=== PATIENT | male | born 1970 | race Caucasian/White ===

== ENCOUNTER 2019-10-16 10:30 | Inpatient (IN) | payer MEDICAID ==
[~2019-10-16] VITALS: Ht 172.7 cm; Wt 85.7 kg
[2019-10-16 10:38] VITALS: BP_SYST 130
[2019-10-16] MEDS ORDERED: VANCOMYCIN HCL 1,000 MG in NS 250 ML IV ONE (11:00)
[2019-10-16] MEDS ORDERED: NACL 0.9% 1,000 ML IV ONE (11:00)
[2019-10-16] MEDS ORDERED: PIPERACILLIN/TAZO 3.375 GM in NS 50 ML IV ONE (11:00)
[2019-10-16 11:25] LABS: BASOPHILS % (AUTO) 0.4 % (0.0-2.0); EOSINOPHILS # (AUTO) 0.1 K/uL (0.0-0.4); HEMATOCRIT 42.6 % (36-54); HEMOGLOBIN 14.4 g/dL (14.0-18.0); LYMPHOCYTES # (AUTO) 1.8 K/uL (1.0-5.5); LYMPHOCYTES % (AUTO) 17.1 % (20.5-51.5); MEAN CORPUSCULAR HEMOGLOBIN 29 pg (27-31); MEAN CORPUSCULAR HGB CONC 34 % (32-36); MEAN CORPUSCULAR VOLUME 87 fL (79.0-98.0); MONOCYTES % (AUTO) 9.5 % (1.7-9.3); NEUTROPHILS # (AUTO) 7.8 K/uL (1.8-7.7); PLATELET COUNT (AUTO) 302 K/uL (130-430); RED BLOOD CELL COUNT(AUTO) 4.88 MIL/uL (4.2-6.2); RED CELL DISTRIBUTION WIDTH 12.5 % (9.0-15.0); WHITE BLOOD COUNT (AUTO) 10.8 K/uL (4.8-10.8)
[2019-10-16] MEDS ORDERED: PIPERACILLIN/TAZOBACTAM 3.375 GM/VIAL (ZOSYN) IV ONE (11:33)
[2019-10-16 11:37] LABS: BILIRUBIN,URINE NEGATIVE (NEGATIVE); CLARITY/URINE CLEAR (CLEAR); COLOR,URINE YELLOW (YELLOW); GLUCOSE,URINE 3+ (NEGATIVE); KETONES,URINE 1+ (NEGATIVE); LEUKOCYTE ESTERASE ,URINE NEGATIVE (NEGATIVE); NITRITE, URINE NEGATIVE (NEGATIVE); PROTEIN URINE TRACE (NEGATIVE)
[2019-10-16 11:37] LABS: CREATININE 0.87 mg/dL (0.55-1.30); POTASSIUM 3.9 mmol/L (3.5-5.1)
[2019-10-16 11:39] LABS: BLOOD, URINE TRACE (NEGATIVE)
[2019-10-16 11:42] LABS: ALBUMIN 2.9 g/dL (3.4-4.8); TOTAL BILIRUBIN 0.8 mg/dL (0.0-1.0)
[2019-10-16 11:45] LABS: BACTERIA,URINE FEW /HPF (None Seen); HYALINE CASTS, URINE 0-10 /LPF (None Seen); MUCUS,URINE 2+ /LPF (None Seen)
[2019-10-16 11:50] LABS: C-REACTIVE PROTEIN QUANT 18.8 mg/dL (0-0.5)
[2019-10-16] MEDS ORDERED: VANCOMYCIN HCL 1000 MG/VIAL IV ONE (12:11)
[2019-10-16 13:01] VITALS: BP_SYST 141
[2019-10-16] MEDS ORDERED: PIOGLITAZONE HCL 15 MG TABLET PO ONE (14:00)
[2019-10-16] MEDS ORDERED: LORazepam 2 MG/ML VIAL IVP PRN (14:00)
[2019-10-16] MEDS ORDERED: HYDROcodone/ACETAMIN 5-325 MG TAB (NORCO/ VICODIN) PO PRN (14:00)
[2019-10-16] MEDS ORDERED: ONDANSETRON HCL 4 MG/2 ML VIAL IVP PRN (14:00)
[2019-10-16] MEDS ORDERED: PIOGLITAZONE HCL 15 MG TABLET PO SCH (14:00)
[2019-10-16] MEDS: NACL 0.9% 1,000 ML IV SCH ×3 (14:25→23:28)
[2019-10-16 16:00] VITALS: BP_SYST 145
[2019-10-16] MEDS: PIPERACILLIN/TAZO 3.375/DEX-IS 50 ML IV SCH ×2 (18:02→23:25)
[2019-10-16] MEDS: metFORMIN HCL 500 MG TABLET PO SCH (18:03)
[2019-10-16] MEDS: INSULIN REGULAR, HUMAN 100 UNITS/ML, 10 ML VIAL (humuLIN R) SUBCUT PRN ×2 (18:10→20:17)
[2019-10-16] MEDS: ACETAMINOPHEN 325 MG TABLET PO PRN ×2 (18:14→23:23)
[2019-10-16 20:00] VITALS: BP_SYST 132
[2019-10-17] VITALS: BP_SYST 135
[2019-10-17] MEDS: PIPERACILLIN/TAZO 3.375/DEX-IS 50 ML IV SCH ×4 (06:10→23:29)
[2019-10-17] MEDS: ACETAMINOPHEN 325 MG TABLET PO PRN (06:12)
[2019-10-17] MEDS: INSULIN REGULAR, HUMAN 100 UNITS/ML, 10 ML VIAL (humuLIN R) SUBCUT PRN ×4 (06:12→20:03)
[2019-10-17 06:45] LABS: BASOPHILS % (AUTO) 0.4 % (0.0-2.0); EOSINOPHILS # (AUTO) 0.2 K/uL (0.0-0.4); EOSINOPHILS % (AUTO) 1.3 % (0.0-4.0); HEMATOCRIT 40.2 % (36-54); HEMOGLOBIN 13.6 g/dL (14.0-18.0); LYMPHOCYTES # (AUTO) 2.4 K/uL (1.0-5.5); LYMPHOCYTES % (AUTO) 20.2 % (20.5-51.5); MEAN CORPUSCULAR HEMOGLOBIN 29 pg (27-31); MEAN CORPUSCULAR HGB CONC 34 % (32-36); MEAN CORPUSCULAR VOLUME 87 fL (79.0-98.0); MONOCYTES % (AUTO) 8.5 % (1.7-9.3); NEUTROPHILS # (AUTO) 8.2 K/uL (1.8-7.7); NEUTROPHILS % (AUTO) 69.6 % (40.0-70.0); PLATELET COUNT (AUTO) 321 K/uL (130-430); RED BLOOD CELL COUNT(AUTO) 4.65 MIL/uL (4.2-6.2); RED CELL DISTRIBUTION WIDTH 12.3 % (9.0-15.0); WHITE BLOOD COUNT (AUTO) 11.8 K/uL (4.8-10.8)
[2019-10-17 07:18] LABS: CALCIUM 8.3 mg/dL (8.4-11.0); CREATININE 0.66 mg/dL (0.55-1.30); POTASSIUM 4.7 mmol/L (3.5-5.1)
[2019-10-17 08:30] VITALS: BP_SYST 144
[2019-10-17] MEDS ORDERED: PIOGLITAZONE HCL 15 MG TABLET PO SCH (09:00)
[2019-10-17 09:24] LABS: ERYTHROCYTE SEDIMENTATION RATE 62 MM/HR (0-15)
[2019-10-17] MEDS: PIOGLITAZONE HCL 15 MG TABLET PO SCH (09:52)
[2019-10-17] MEDS: metFORMIN HCL 500 MG TABLET PO SCH ×2 (09:52→17:21)
[2019-10-17 11:12] LABS: C-REACTIVE PROTEIN QUANT 14.8 mg/dL (0-0.5)
[2019-10-17] MEDS ORDERED: GLUCOSE 15 GM GEL (in 37.5 GM TUBE) PO PRN (11:30)
[2019-10-17] MEDS ORDERED: D5W 1,000 ML IV PRN (11:30)
[2019-10-17] MEDS ORDERED: DEXTROSE 50%-WATER 50 ML DISP.SYRIN IVP PRN (11:30)
[2019-10-17 12:03] VITALS: BP_SYST 141
[2019-10-17] MEDS: NACL 0.9% 1,000 ML IV SCH ×2 (14:38→23:28)
[2019-10-17 16:10] VITALS: BP_SYST 154
[2019-10-17 20:00] VITALS: BP_SYST 129
[2019-10-18] MEDS: NACL 0.9% 1,000 ML IV SCH ×2 (05:53→11:29)
[2019-10-18] MEDS: PIPERACILLIN/TAZO 3.375/DEX-IS 50 ML IV SCH ×3 (06:40→17:22)
[2019-10-18] MEDS: INSULIN REGULAR, HUMAN 100 UNITS/ML, 10 ML VIAL (humuLIN R) SUBCUT PRN ×4 (06:46→22:17)
[2019-10-18 06:54] LABS: BASOPHILS # (AUTO) 0.1 K/uL (0.0-0.2); BASOPHILS % (AUTO) 0.6 % (0.0-2.0); EOSINOPHILS # (AUTO) 0.1 K/uL (0.0-0.4); HEMATOCRIT 38.1 % (36-54); HEMOGLOBIN 12.9 g/dL (14.0-18.0); LYMPHOCYTES # (AUTO) 3.1 K/uL (1.0-5.5); LYMPHOCYTES % (AUTO) 24.1 % (20.5-51.5); MEAN CORPUSCULAR HEMOGLOBIN 30 pg (27-31); MEAN CORPUSCULAR HGB CONC 34 % (32-36); MEAN CORPUSCULAR VOLUME 87 fL (79.0-98.0); MONOCYTES # (AUTO) 1.2 K/uL (0.0-1.0); MONOCYTES % (AUTO) 9.7 % (1.7-9.3); NEUTROPHILS # (AUTO) 8.3 K/uL (1.8-7.7); NEUTROPHILS % (AUTO) 64.6 % (40.0-70.0); PLATELET COUNT (AUTO) 333 K/uL (130-430); RED BLOOD CELL COUNT(AUTO) 4.38 MIL/uL (4.2-6.2); RED CELL DISTRIBUTION WIDTH 12.4 % (9.0-15.0); WHITE BLOOD COUNT (AUTO) 12.8 K/uL (4.8-10.8)
[2019-10-18] MEDS: ACETAMINOPHEN 325 MG TABLET PO PRN (06:55)
[2019-10-18 08:04] LABS: CALCIUM 8.6 mg/dL (8.4-11.0); CREATININE 0.64 mg/dL (0.55-1.30); POTASSIUM 3.6 mmol/L (3.5-5.1)
[2019-10-18 09:10] LABS: C-REACTIVE PROTEIN QUANT 12.3 mg/dL (0-0.5)
[2019-10-18] MEDS: PIOGLITAZONE HCL 15 MG TABLET PO SCH (09:41)
[2019-10-18] MEDS: metFORMIN HCL 500 MG TABLET PO SCH ×2 (09:45→17:30)
[2019-10-18 10:45] LABS: ERYTHROCYTE SEDIMENTATION RATE 74 MM/HR (0-15)
[2019-10-18 12:00] VITALS: BP_SYST 125
[2019-10-18 16:40] VITALS: BP_SYST 142
[2019-10-18 19:00] VITALS: BP_SYST 134
[2019-10-18 20:00] VITALS: BP_SYST 139
[2019-10-18] MEDS: HYDROcodone/ACETAMIN 10-325 MG TAB PO PRN (22:13)
[2019-10-19] MEDS: PIPERACILLIN/TAZO 3.375/DEX-IS 50 ML IV SCH ×5 (00:40→22:07)
[2019-10-19 00:56] VITALS: BP_SYST 136
[2019-10-19] MEDS: NACL 0.9% 1,000 ML IV SCH ×3 (01:53→22:08)
[2019-10-19] MEDS: HYDROcodone/ACETAMIN 10-325 MG TAB PO PRN ×2 (06:40→18:19)
[2019-10-19] MEDS: INSULIN REGULAR, HUMAN 100 UNITS/ML, 10 ML VIAL (humuLIN R) SUBCUT PRN ×4 (06:41→22:12)
[2019-10-19 08:10] LABS: BASOPHILS # (AUTO) 0.1 K/uL (0.0-0.2); BASOPHILS % (AUTO) 1.1 % (0.0-2.0); EOSINOPHILS # (AUTO) 0.1 K/uL (0.0-0.4); HEMATOCRIT 38.7 % (36-54); HEMOGLOBIN 13.2 g/dL (14.0-18.0); LYMPHOCYTES # (AUTO) 2.9 K/uL (1.0-5.5); LYMPHOCYTES % (AUTO) 21.9 % (20.5-51.5); MEAN CORPUSCULAR HEMOGLOBIN 29 pg (27-31); MEAN CORPUSCULAR HGB CONC 34 % (32-36); MEAN CORPUSCULAR VOLUME 86 fL (79.0-98.0); MONOCYTES # (AUTO) 1.2 K/uL (0.0-1.0); MONOCYTES % (AUTO) 9.3 % (1.7-9.3); NEUTROPHILS # (AUTO) 8.8 K/uL (1.8-7.7); NEUTROPHILS % (AUTO) 66.7 % (40.0-70.0); PLATELET COUNT (AUTO) 375 K/uL (130-430); RED BLOOD CELL COUNT(AUTO) 4.51 MIL/uL (4.2-6.2); RED CELL DISTRIBUTION WIDTH 12.3 % (9.0-15.0); WHITE BLOOD COUNT (AUTO) 13.1 K/uL (4.8-10.8)
[2019-10-19 08:16] VITALS: BP_SYST 110
[2019-10-19 08:19] LABS: C-REACTIVE PROTEIN QUANT 11.2 mg/dL (0-0.5); CALCIUM 8.7 mg/dL (8.4-11.0); CREATININE 0.73 mg/dL (0.55-1.30); POTASSIUM 4.2 mmol/L (3.5-5.1)
[2019-10-19] MEDS: metFORMIN HCL 500 MG TABLET PO SCH ×2 (08:24→18:10)
[2019-10-19] MEDS: PIOGLITAZONE HCL 15 MG TABLET PO SCH (08:25)
[2019-10-19 10:57] LABS: ERYTHROCYTE SEDIMENTATION RATE 73 MM/HR (0-15)
[2019-10-19 12:01] VITALS: BP_SYST 144
[2019-10-19 15:27] VITALS: BP_SYST 135
[2019-10-19 20:00] VITALS: BP_SYST 126
[2019-10-20] VITALS: BP_SYST 134
[2019-10-20] MEDS: NACL 0.9% 1,000 ML IV SCH ×2 (02:42→17:07)
[2019-10-20] MEDS: HYDROcodone/ACETAMIN 10-325 MG TAB PO PRN ×2 (06:21→21:01)
[2019-10-20] MEDS: INSULIN REGULAR, HUMAN 100 UNITS/ML, 10 ML VIAL (humuLIN R) SUBCUT PRN ×4 (06:24→20:59)
[2019-10-20] MEDS: PIPERACILLIN/TAZO 3.375/DEX-IS 50 ML IV SCH ×4 (06:26→21:09)
[2019-10-20 06:57] LABS: CALCIUM 9.2 mg/dL (8.4-11.0); CREATININE 0.79 mg/dL (0.55-1.30); POTASSIUM 5.1 mmol/L (3.5-5.1)
[2019-10-20 08:00] VITALS: BP_SYST 129
[2019-10-20] MEDS: metFORMIN HCL 500 MG TABLET PO SCH ×2 (08:00→17:02)
[2019-10-20 08:59] LABS: BASOPHILS % (AUTO) 0.4 % (0.0-2.0); EOSINOPHILS # (AUTO) 0.1 K/uL (0.0-0.4); HEMATOCRIT 40.8 % (36-54); HEMOGLOBIN 13.7 g/dL (14.0-18.0); LYMPHOCYTES # (AUTO) 2.4 K/uL (1.0-5.5); MEAN CORPUSCULAR HEMOGLOBIN 29 pg (27-31); MEAN CORPUSCULAR HGB CONC 34 % (32-36); MEAN CORPUSCULAR VOLUME 87 fL (79.0-98.0); MONOCYTES # (AUTO) 1.3 K/uL (0.0-1.0); MONOCYTES % (AUTO) 9.8 % (1.7-9.3); NEUTROPHILS # (AUTO) 8.9 K/uL (1.8-7.7); NEUTROPHILS % (AUTO) 69.8 % (40.0-70.0); PLATELET COUNT (AUTO) 430 K/uL (130-430); RED BLOOD CELL COUNT(AUTO) 4.71 MIL/uL (4.2-6.2); RED CELL DISTRIBUTION WIDTH 12.1 % (9.0-15.0); WHITE BLOOD COUNT (AUTO) 12.7 K/uL (4.8-10.8)
[2019-10-20 09:39] LABS: C-REACTIVE PROTEIN QUANT 13.5 mg/dL (0-0.5)
[2019-10-20] MEDS: PIOGLITAZONE HCL 15 MG TABLET PO SCH (10:08)
[2019-10-20 10:24] LABS: ERYTHROCYTE SEDIMENTATION RATE 77 MM/HR (0-15)
[2019-10-20 12:00] VITALS: BP_SYST 136
[2019-10-20 20:00] VITALS: BP_SYST 138
[2019-10-21] MEDS: NACL 0.9% 1,000 ML IV SCH ×3 (03:53→22:45)
[2019-10-21] MEDS: PIPERACILLIN/TAZO 3.375/DEX-IS 50 ML IV SCH (06:06)
[2019-10-21] MEDS: INSULIN REGULAR, HUMAN 100 UNITS/ML, 10 ML VIAL (humuLIN R) SUBCUT PRN ×4 (06:18→22:40)
[2019-10-21 07:21] LABS: BASOPHILS # (AUTO) 0.1 K/uL (0.0-0.2); BASOPHILS % (AUTO) 0.6 % (0.0-2.0); EOSINOPHILS # (AUTO) 0.2 K/uL (0.0-0.4); HEMATOCRIT 38.4 % (36-54); HEMOGLOBIN 13.1 g/dL (14.0-18.0); LYMPHOCYTES # (AUTO) 2.6 K/uL (1.0-5.5); LYMPHOCYTES % (AUTO) 25.8 % (20.5-51.5); MEAN CORPUSCULAR HEMOGLOBIN 30 pg (27-31); MEAN CORPUSCULAR HGB CONC 34 % (32-36); MEAN CORPUSCULAR VOLUME 87 fL (79.0-98.0); MONOCYTES # (AUTO) 1.1 K/uL (0.0-1.0); MONOCYTES % (AUTO) 10.4 % (1.7-9.3); NEUTROPHILS # (AUTO) 6.3 K/uL (1.8-7.7); NEUTROPHILS % (AUTO) 61.2 % (40.0-70.0); PLATELET COUNT (AUTO) 427 K/uL (130-430); RED BLOOD CELL COUNT(AUTO) 4.43 MIL/uL (4.2-6.2); WHITE BLOOD COUNT (AUTO) 10.2 K/uL (4.8-10.8)
[2019-10-21 07:31] LABS: C-REACTIVE PROTEIN QUANT 11.8 mg/dL (0-0.5); CALCIUM 8.8 mg/dL (8.4-11.0); CREATININE 0.69 mg/dL (0.55-1.30); POTASSIUM 4.7 mmol/L (3.5-5.1)
[2019-10-21] MEDS: metFORMIN HCL 500 MG TABLET PO SCH ×2 (08:00→17:01)
[2019-10-21 08:22] VITALS: BP_SYST 125
[2019-10-21 08:27] LABS: ERYTHROCYTE SEDIMENTATION RATE 74 MM/HR (0-15)
[2019-10-21] MEDS: PIOGLITAZONE HCL 15 MG TABLET PO SCH (08:51)
[2019-10-21] MEDS: HYDROcodone/ACETAMIN 10-325 MG TAB PO PRN ×3 (08:54→22:30)
[2019-10-21 12:00] VITALS: BP_SYST 141
[2019-10-21] MEDS: ceFAZolin SODIUM 1 GM in D5W 50 ML IV SCH ×2 (13:39→22:30)
[2019-10-21 16:00] VITALS: BP_SYST 122
[2019-10-21 20:00] VITALS: BP_SYST 134
[2019-10-22 00:26] VITALS: BP_SYST 120
[2019-10-22] MEDS: ceFAZolin SODIUM 1 GM in D5W 50 ML IV SCH ×3 (06:17→21:33)
[2019-10-22] MEDS: INSULIN REGULAR, HUMAN 100 UNITS/ML, 10 ML VIAL (humuLIN R) SUBCUT PRN ×4 (06:23→21:37)
[2019-10-22] MEDS: HYDROcodone/ACETAMIN 10-325 MG TAB PO PRN ×2 (06:27→21:41)
[2019-10-22 07:15] LABS: BASOPHILS # (AUTO) 0.1 K/uL (0.0-0.2); BASOPHILS % (AUTO) 0.7 % (0.0-2.0); EOSINOPHILS # (AUTO) 0.1 K/uL (0.0-0.4); EOSINOPHILS % (AUTO) 0.8 % (0.0-4.0); HEMATOCRIT 38.1 % (36-54); HEMOGLOBIN 12.9 g/dL (14.0-18.0); LYMPHOCYTES # (AUTO) 2.1 K/uL (1.0-5.5); LYMPHOCYTES % (AUTO) 17.9 % (20.5-51.5); MEAN CORPUSCULAR HEMOGLOBIN 29 pg (27-31); MEAN CORPUSCULAR HGB CONC 34 % (32-36); MEAN CORPUSCULAR VOLUME 86 fL (79.0-98.0); MONOCYTES # (AUTO) 1.2 K/uL (0.0-1.0); NEUTROPHILS # (AUTO) 8.3 K/uL (1.8-7.7); NEUTROPHILS % (AUTO) 70.6 % (40.0-70.0); PLATELET COUNT (AUTO) 471 K/uL (130-430); RED BLOOD CELL COUNT(AUTO) 4.43 MIL/uL (4.2-6.2); RED CELL DISTRIBUTION WIDTH 12.2 % (9.0-15.0); WHITE BLOOD COUNT (AUTO) 11.7 K/uL (4.8-10.8)
[2019-10-22 07:27] LABS: CALCIUM 8.7 mg/dL (8.4-11.0); CREATININE 0.58 mg/dL (0.55-1.30); POTASSIUM 3.8 mmol/L (3.5-5.1)
[2019-10-22 08:02] VITALS: BP_SYST 130
[2019-10-22] MEDS: PIOGLITAZONE HCL 15 MG TABLET PO SCH (08:04)
[2019-10-22] MEDS: metFORMIN HCL 500 MG TABLET PO SCH ×2 (08:04→17:26)
[2019-10-22 08:09] LABS: C-REACTIVE PROTEIN QUANT 13.5 mg/dL (0-0.5)
[2019-10-22 10:00] LABS: ERYTHROCYTE SEDIMENTATION RATE 82 MM/HR (0-15)
[2019-10-22] MEDS: NACL 0.9% 1,000 ML IV SCH ×2 (10:43→21:33)
[2019-10-22 12:14] VITALS: BP_SYST 129
[2019-10-22 16:08] VITALS: BP_SYST 126
[2019-10-22 20:00] VITALS: BP_SYST 145
[2019-10-23 02:20] VITALS: BP_SYST 139
[2019-10-23] MEDS: ceFAZolin SODIUM 1 GM in D5W 50 ML IV SCH ×2 (05:51→14:37)
[2019-10-23] MEDS: NACL 0.9% 1,000 ML IV SCH (05:52)
[2019-10-23] MEDS: INSULIN REGULAR, HUMAN 100 UNITS/ML, 10 ML VIAL (humuLIN R) SUBCUT PRN ×2 (05:59→12:14)
[2019-10-23 07:20] LABS: BASOPHILS # (AUTO) 0.1 K/uL (0.0-0.2); BASOPHILS % (AUTO) 0.8 % (0.0-2.0); EOSINOPHILS # (AUTO) 0.1 K/uL (0.0-0.4); HEMOGLOBIN 12.9 g/dL (14.0-18.0); LYMPHOCYTES % (AUTO) 22.5 % (20.5-51.5); MEAN CORPUSCULAR HEMOGLOBIN 30 pg (27-31); MEAN CORPUSCULAR HGB CONC 35 % (32-36); MEAN CORPUSCULAR VOLUME 85 fL (79.0-98.0); MONOCYTES # (AUTO) 1.3 K/uL (0.0-1.0); MONOCYTES % (AUTO) 14.5 % (1.7-9.3); NEUTROPHILS # (AUTO) 5.5 K/uL (1.8-7.7); NEUTROPHILS % (AUTO) 61.2 % (40.0-70.0); PLATELET COUNT (AUTO) 482 K/uL (130-430); RED BLOOD CELL COUNT(AUTO) 4.33 MIL/uL (4.2-6.2)
[2019-10-23 07:31] LABS: CALCIUM 8.7 mg/dL (8.4-11.0); CREATININE 0.67 mg/dL (0.55-1.30); POTASSIUM 3.8 mmol/L (3.5-5.1)
[2019-10-23 07:50] VITALS: BP_SYST 137
[2019-10-23] MEDS: PIOGLITAZONE HCL 15 MG TABLET PO SCH (08:10)
[2019-10-23] MEDS: metFORMIN HCL 500 MG TABLET PO SCH (08:10)
[2019-10-23 10:20] LABS: ERYTHROCYTE SEDIMENTATION RATE 82 MM/HR (0-15)
[2019-10-23 12:12] VITALS: BP_SYST 124
[2019-10-23] MEDS ORDERED: GLU500 PO (15:12)
[2019-10-23] MEDS ORDERED: DOXY100T2 PO (15:12)
[2019-10-23] MEDS ORDERED: HYDR-4272 PO (15:12)
[2019-10-23] MEDS ORDERED: CLIN300C11 PO (15:12)
[2019-10-23] MEDS ORDERED: PIOG15TA8 PO (15:12)
[2019-10-23 15:54] VITALS: BP_SYST 122
[2019-10-23 16:05] VITALS: BP_SYST 127
== END 2019-10-23 16:46 | disposition home health service (06) | DRG 710 ==
LOC: SED 10:30 → SMU 12:20
PROVIDERS: ADMIT Preventive Medicine Preventive Medicine/Occupational Environmental Medicine; ATTEND Preventive Medicine Preventive Medicine/Occupational Environmental Medicine
PROC: 0J9Q0ZZ Drainage of Right Foot Subcutaneous Tissue and Fascia, Open Approach (ICD-10-PCS; principal; 2019-10-21)
DX: A41.89 Other specified sepsis (principal); E11.42 Type 2 diabetes mellitus with diabetic polyneuropathy; E11.621 Type 2 diabetes mellitus with foot ulcer; E87.2 Acidosis; L03.115 Cellulitis of right lower limb; E44.1 Mild protein-calorie malnutrition; E83.51 Hypocalcemia; E11.65 Type 2 diabetes mellitus with hyperglycemia; L03.116 Cellulitis of left lower limb; E87.1 Hypo-osmolality and hyponatremia; E88.09 Other disorders of plasma-protein metabolism, not elsewhere classified; L97.519 Non-pressure chronic ulcer of other part of right foot with unspecified severity; M86.9 Osteomyelitis, unspecified; Z79.4 Long term (current) use of insulin; Z79.899 Other long term (current) drug therapy
CPT/HCPCS: 36415; 71045; 78315; 80048; 80053; 81000-TC; 82962; 83036; 83605; 85025; 85610-TC; 85651-TC; 86140; 87040-TC; 87070-TC; 87186-TC; 96365; 99285; A9503; J0690; J1815; J2543; J3370; J7030; J7060

== ENCOUNTER 2023-04-21 14:12 | Emergency (ER) | payer MEDICAID ==
[~2023-04-21] VITALS: Ht 170.2 cm; Wt 83.9 kg
[~2023-04-21 14:12] MED LIST: CLIN-142 PO; DOXY100T2 PO; GLU500 PO; HYDR-4272 PO; PIOG15TA8 PO
[2023-04-21 14:18] VITALS: BP_SYST 150; PULSE 88; RESP 18; TEMP 98.4; O2SAT 93
[2023-04-21 15:54] LABS: BASOPHILS # (AUTO) 0.1 K/uL (0.0-0.2); EOSINOPHILS # (AUTO) 0.1 K/uL (0.0-0.4); EOSINOPHILS % (AUTO) 0.7 % (0.0-4.0); HEMATOCRIT 40.1 % (36-54); HEMOGLOBIN 13.5 g/dL (14.0-18.0); LYMPHOCYTES # (AUTO) 2.4 K/uL (1.0-5.5); LYMPHOCYTES % (AUTO) 25.9 % (20.5-51.5); MEAN CORPUSCULAR HEMOGLOBIN 28 pg (27-31); MEAN CORPUSCULAR HGB CONC 34 % (32-36); MEAN CORPUSCULAR VOLUME 84 fL (79.0-98.0); MONOCYTES # (AUTO) 0.7 K/uL (0.0-1.0); MONOCYTES % (AUTO) 7.2 % (1.7-9.3); NEUTROPHILS # (AUTO) 6.1 K/uL (1.8-7.7); NEUTROPHILS % (AUTO) 65.2 % (40.0-70.0); PLATELET COUNT (AUTO) 334 K/uL (130-430); RED BLOOD CELL COUNT(AUTO) 4.76 MIL/uL (4.2-6.2); RED CELL DISTRIBUTION WIDTH 12.5 % (9.0-15.0); WHITE BLOOD COUNT (AUTO) 9.4 K/uL (4.8-10.8)
[2023-04-21 16:00] LABS: ANION GAP 4 (5-15); CALCIUM 8.8 mg/dL (8.4-11.0); CARBON DIOXIDE 33 mmol/L (23-29); CHLORIDE 96 mmol/L (98-107); GFR AFRICAN AMERICAN 90 mL/min (>90); GLUCOSE 392 mg/dL (74-106); POTASSIUM 5.2 mmol/L (3.5-5.1); SODIUM SERUM 133 mmol/L (136-145); UREA NITROGEN, BLOOD 19 mg/dL (8-21)
[2023-04-21 16:02] LABS: GFR NON AFRICAN-AMERICAN 74 mL/min (>90)
[2023-04-21 16:07] LABS: ACETONE, SERUM NEGATIVE (NEGATIVE)
[2023-04-21 16:42] LABS: ALANINE AMINOTRANSFERASE 10 U/L (12-78); ALBUMIN 3.2 g/dL (3.4-4.8); ASPARTATE AMINOTRANSFERASE 14 U/L (10-37); TOTAL BILIRUBIN 0.5 mg/dL (0.0-1.0); TOTAL PROTEIN, SERUM 7.1 g/dL (6.4-8.3)
[2023-04-21] MEDS ORDERED: CLIN-22 PO (17:12)
[2023-04-21] MEDS ORDERED: NEOM28.37 TP (17:12)
[2023-04-21] MEDS ORDERED: CLINDAMYCIN HCL 150 MG CAPSULE PO ONE (17:15)
[2023-04-21] MEDS ORDERED: INSULIN REGULAR, HUMAN 10 UNITS/0.1 ML, 3 ML VIAL SUBCUT ONE (17:15)
[2023-04-21] MEDS ORDERED: DIPHTH,PERTUSS(ACELL),TET VAC 0.5 ML VIAL (Tdap) I.M. ONE (17:15)
[2023-04-21] MEDS ORDERED: BACITRACIN 1 GM OINT TP ONE (17:15)
[2023-04-21 17:42] VITALS: BP_SYST 132; PULSE 72; RESP 16; TEMP 98.4; O2SAT 98
== END 2023-04-21 17:42 | disposition home or self-care (01) ==
LOC: SED 14:12
DX: E11.621 Type 2 diabetes mellitus with foot ulcer (principal); Z79.899 Other long term (current) drug therapy
CPT/HCPCS: 36415; 80053; 82009; 82962; 83605; 85025; 90715; 96372; 99284; J1815